=== PATIENT | female | born 1995 | race Caucasian/White ===

== ENCOUNTER 2021-06-15 08:58 | Emergency (ER) | payer MEDICAID ==
[2021-06-15] MEDS ORDERED: Lidocaine 1% 5 ML VIAL INJECT ONE (09:57)
[2021-06-15] MEDS ORDERED: Bupivacaine 0.5% 10 ML SDV INJECT ONE (09:58)
[2021-06-15] MEDS ORDERED: Amoxicillin 250 MG Cap PO ONE (09:59)
[2021-06-15] MEDS ORDERED: Acetaminophen/oxyCODONE 325-5 MG Tab PO ONE (10:00)
[2021-06-15] MEDS ORDERED: Ondansetron 4 MG Tab.DIS PO ONE (10:32)
== END 2021-06-15 11:10 | disposition home or self-care (01) ==
LOC: LL.ED 08:58
DX: K08.89 Other specified disorders of teeth and supporting structures (principal); Z87.891 Personal history of nicotine dependence
CPT/HCPCS: 64400; 99282; 99283; A9270; J3490